=== PATIENT | female | born 1985 | race American Indian/Alaskan Native ===

== ENCOUNTER 2016-06-21 17:35 | Outpatient (CLI) | payer BC ==
[2016-06-21] MEDS ORDERED: LACTATED RINGERS 500 ML IV ONE (18:40)
[2016-06-21 19:56] LABS: Bilirubin,Urine NEG (Negative); Blood,Urine NEG (Negative); Ketones,Urine 20 mg/dL (Negative); Leukocyte Esterase,Urine NEG (Negative); Mucus,Urine FEW /HPF; Nitrite,Urine NEG (Negative); Protein,Urine <15 mg/dL mg/dL (Negative); Urobilinogen,Urine < 2.0 mg/dL (<2.0)
[2016-06-21 20:32] VITALS: BP 123/79
== END 2016-06-21 20:30 | disposition home or self-care (01) ==
LOC: TRG 17:35
PROVIDERS: ATTEND Obstetrics & Gynecology
DX: O77.9 Labor and delivery complicated by fetal stress, unspecified (principal); O47.9 False labor, unspecified; Z3A.00 Weeks of gestation of pregnancy not specified
CPT/HCPCS: 59025; 81001

== ENCOUNTER 2016-06-28 05:43 | Inpatient (IN) | payer BC ==
--- NOTE | 2016-06-27 13:40 | History and Physical Report ---
History of Present Illness Date of examination: 06/28/16 Date of admission: 06/28/16 Chief complaint: scheduled section and tubal ligation History of present illness: Pt is a 30 year old -[place] female BONI 07/02/16 at 39w3d who presents for scheduled section and bilateral tubal ligation. She reports good movement and irregular contractions. She denies vaginal bleeding and leakage of fluid. She has had care at [facility] since transfer into care at 31 wks complicated by obesity, anemia, previous section x 1. She is GBS Negative. Past History Past Medical History: no pertinent history Past Surgical History: breast surgery (breast augmentation ), section Family/Genetic History: hypertension, cancer Social history: no significant social history, single - Obstetrical History Expected Date of Delivery: 07/02/16 Actual Gestation: 39 Week(s) 2 Day(s) : 5 Para: 2 Hx # Term Pregnancies: 2 Number of Pregnancies: 0 Spontaneous Abortions: 1 Induced : 1 Number of Living Children: 2 Medications and Allergies Allergies Allergy/AdvReac Type Severity Reaction Status Date / Time No Known Allergies Allergy Unverified 06/21/16 18:07 Review of Systems All systems: negative - Physical Exam Breasts: Positive: deferred Cardiovascular: Regular rate Lungs: Positive: Clear to auscultation Abdomen: Positive: soft (obese, gravid ) Uterus: Positive: enlarged (gravid) Extremities: Positive: normal - Obstetrical FHR: auscultation normal Uterine Contraction Monitor Mode: External Uterine Contraction Pattern: Absent Uterine Tone Measurement Phase: Resting Results All other labs normal. Assessment and Plan A: IUP at 39w3d Previous section x 1 Obesity Undesired fertility P: Proceed with repeat section with bilateral tubal ligation and other indicated procedures.
[~2016-06-28 05:43] MED LIST: ANCEF/STERILE WATER 2 GM/20 ML 20 ML IV NR; BICITRA PO SCH; PEPCID IV SCH; PITOCin/NS 20 UNIT/1000ML DRIP 1,000 ML IV NR; REGLAN IV SCH
[2016-06-28 06:21] LABS: Basophils % (Auto) 0.3 % (0.0-1.8); Eosinophils % (Auto) 0.4 % (0.0-4.3); Hematocrit 34.3 % (30.3-42.9); Hemoglobin 11.4 gm/dl (10.1-14.3); Mean Corpuscular HGB Conc 33 % (30-34); Mean Corpuscular Hemoglobin 29 pg (28-32); Mean Corpuscular Volume 88 fl (79-97); Platelet Count 301 K/mm3 (140-440); Red Blood Count 3.89 M/mm3 (3.65-5.03); Red Cell Distribution Width 13.9 % (13.2-15.2); White Blood Count 12.6 K/mm3 (4.5-11.0)
--- NOTE | 2016-06-28 07:18 | Anesthesia Consultation ---
Anesthesia Consult and Med Hx Date of service: 06/28/16 - Airway Anesthetic Teeth Evaluation: Good ROM Head & Neck: Adequate Mental/Hyoid Distance: Adequate Mallampati Class: Class II Intubation Access Assessment: Probably Good - Pre-Operative Health Status ASA Pre-Surgery Classification: ASA2 Proposed Anesthetic Plan: Epidural, Spinal - Pulmonary Hx Asthma: No COPD: No Hx Pneumonia: No - Cardiovascular System Hx Hypertension: No - Central Nervous System Hx Seizures: No Hx Psychiatric Problems: No - Endocrine Hx Renal Disease: No Hx End Stage Renal Disease: No Hx Hypothyroidism: No Hx Hyperthyroidism: No - Hematic Hx Anemia: No Hx Sickle Cell Disease: No - Other Systems Hx Alcohol Use: No Hx Obesity: Yes (BMI 39.9)
--- NOTE | 2016-06-28 07:19 | Anesthesia Day of Surgery ---
Anesthesia Day of Surgery - Day of Surgery Patient Examined: Yes Patient H&P Reviewed: Yes Patient is NPO: Yes
[2016-06-28] MEDS ORDERED: BENADRYL IV PRN (07:30)
[2016-06-28] MEDS ORDERED: TORADOL IV PRN (07:30)
[2016-06-28] MEDS ORDERED: ZOFRAN IV PRN (07:30)
[2016-06-28] MEDS ORDERED: DILAUDID IV PRN (07:30)
[2016-06-28] MEDS ORDERED: NARCAN 0.4 MG/1 ML IV PRN ×2 (07:30→13:45)
[2016-06-28] MEDS: LACTATED RINGERS 1,000 ML IV NR ×2 (07:32→07:33)
[2016-06-28] MEDS ORDERED: SODIUM CHLORIDE FLUSH SYRINGE 10 ML IV PRN (08:00)
--- NOTE | 2016-06-28 08:28 | Procedure Note ---
OB Delivery Note - Delivery Date of Delivery: 06/28/16 Surgeon: GILBERTO RODRIGUEZ Estimated blood loss: 1000cc - Section Preop diagnosis: repeat , desires sterilization Postop diagnosis: same section procedure: section, repeat low transverse, bilateral tubal ligation Disposition: PACU Complications: none Narrative: Please see operative note. - A at 1 minute: 8 at 5 minutes: 9 Gender: Female (3991g (8 lb 13 oz))
--- NOTE | 2016-06-28 08:29 | Operative Report ---
Operative Report Operative Report: Date of procedure: June 28, 2016 Preoperative diagnosis: 1) IUP at 39w3d 2) Previous section 3) Undesired Fertility Postoperative diagnosis: Same Procedure: Repeat low transverse section 2) Bilateral tubal ligation via [place] Method Surgeon: Alba Tran M.D. Anesthesia:Spinal-Epidural Findings: 1) Viable female , Apgars 8 and 9, weight 3991g, (8 lb 13 oz) 2) Normal-appearing uterus ovaries and tubes Estimated blood loss: 1000 mL IV fluids: 1600 mL Urine output: 200, clear but concentrated yellow in color after the procedure Drains: Zaman to gravity Specimens: Bilateral tubal segments to pathology Complications: None. Counts correct x 3 Disposition: Stable to PACU Indication for procedure: Pt is a 30 year old -[place] female at 39w3d with a h/o previous x 1 and undesired fertility who presents for scheduled section and bilateral tubal ligation. Operation in detail: After the risks, benefits, alternatives and complications were explained to the patient she gave informed consent for the procedure. She was subsequently taken to the operating room where spinal-epidural anesthesia was noted to be adequate. She was subsequently placed in the dorsal supine position with leftward tilt and prepped and draped in a normal sterile fashion. heart tones were noted to be in the 140s prior to incision. A timeout was performed. A Pfannenstiel skin incision was made with the knife and carried down to the layer of the fascia with the Bovie. The fascia was incised in the midline and the fascial incision was extended bilaterally with the Bovie. Attention was then turned to the superior aspect of the incision which was grasped with two Kochers, tented up, and dissected off the rectus muscles. Attention was then turned to the inferior aspect of the incision which was grasped with two Kochers , tented up and dissected off the rectus muscles. The rectus muscles were then in the midline and partially transected for adequate visualization. The peritoneum was then entered bluntly. The peritoneal incision was extended with good visualization of the bladder. The peritoneal incision was then stretched. An Pola self-retaining retractor was placed for visualization. The bladder blade was placed. The vesicouterine peritoneum was grasped with smooth pickups and incised with Metzenbaum scissors. Metzenbaum scissors were used to extend the incision bilaterally. The bladder flap was then created digitally and the bladder blade was replaced. A transverse incision was made in the lower uterine segment with a knife and extended bilaterally with the bandage scissors. The head was delivered without difficulty followed by shoulders and body. was bulb suctioned at delivery. The cord was clamped and cut and the was handed to NICU staff in attendance. Cord blood was collected. The placenta was then delivered manually. The uterus was then exteriorized and cleared of all clots and debris. The hysterotomy was then reapproximated with 0 Vicryl in a running locked fashion. A second layer of the same suture was used in imbricating fashion. Attention was then turned to the tubal ligation. The right tube was identified and followed to to the fimbriae. The tube was then grasped with a [place] and ligated via the [place] method. Attention was then turned to the left tube which in a similar fashion was followed down to the fimbriae, grasped with a [place], and ligated in via the [place] method. The mesosalpinx on the left side was noted to be oozing between the remaining tubal segments so it was reapproximated with 3-0 Vicryl in a running locked fashion. Hemostasis was noted. The intervening mesosalpinx bilaterally was covered with Surgicel. The hysterotomy was inspected and hemostasis was noted. The uterus was then returned to the peritoneal cavity. All instruments were removed from the abdominal cavity. The gutters were irrigated and cleared of all clots and debris. The hysterotomy was again inspected and noted to be hemostatic. Surgicel was placed over the hysterotomy. The rectus muscles were then reapproximated with 2-0 Vicryl in an interrupted fashion. The cut edges of the rectus muscles were covered with Surgicel. The fascia was reapproximated with 0 Vicryl in a running fashion. The skin was reapproximated with 4-0 Vicryl in a subcuticular fashion. The incision was then covered with steri strips and a pressure dressing. The procedure was then ended. The patient tolerated the procedure well and was taken to the PACU in stable condition. All instrument, lap, and needle counts were correct 3.
[2016-06-28] MEDS ORDERED: MORPHINE ONE (09:46)
[2016-06-28] MEDS ORDERED: ANCEF/STERILE WATER 2 GM/20 ML IV ONE (10:05)
[2016-06-28] MEDS ORDERED: WATER FOR IRRIG STERILE IR ONE (10:15)
[2016-06-28] MEDS ORDERED: NACL 0.9% IR ONE (10:15)
[2016-06-28] MEDS ORDERED: NACL 0.9% 1000 ML 1,000 ML ONE (11:23)
[2016-06-28] MEDS ORDERED: LANSINOH TP PRN (13:45)
[2016-06-28] MEDS ORDERED: PITOCin/NS 20 UNIT/1000ML DRIP 1,000 ML IV SCH (13:45)
[2016-06-28] MEDS ORDERED: MYLICON PO PRN (13:45)
[2016-06-28] MEDS ORDERED: MORPHINE IV PRN ×2 (13:45)
[2016-06-28] MEDS ORDERED: SODIUM CHLORIDE FLUSH SYRINGE 10 ML IV NR (13:45)
[2016-06-28] MEDS ORDERED: MOTRIN PO PRN (13:45)
[2016-06-28] MEDS ORDERED: TUCKS PAD TP PRN (13:45)
[2016-06-28] MEDS: D5LR 1,000 ML IV SCH (17:56)
[2016-06-28] MEDS: PERCOCET 5/325 PO PRN (17:56)
[2016-06-28] MEDS: ANCEF/NS 1 GM/50 ML 50 ML IV SCH (17:56)
[2016-06-28] MEDS: MILK OF MAGNESIA PO SCH (22:00)
[2016-06-28] MEDS: FEOSOL PO SCH (22:00)
[2016-06-29 01:29] LABS: Hematocrit 28.1 % (30.3-42.9); Hemoglobin 9.3 gm/dl (10.1-14.3)
[2016-06-29] MEDS: ANCEF/NS 1 GM/50 ML 50 ML IV SCH (01:45)
[2016-06-29] MEDS: D5LR 1,000 ML IV SCH (01:45)
[2016-06-29] MEDS: MILK OF MAGNESIA PO SCH ×5 (02:00→23:55)
[2016-06-29] MEDS ORDERED: M-M-R II VACCINE SUB-Q ONE (06:00)
[2016-06-29] MEDS ORDERED: BOOSTRIX IM ONE (06:00)
--- NOTE | 2016-06-29 08:23 | Progress Note ---
Assessment and Plan O: VSS AF PP H/H: 9.3/28.1 A: Stable POD #1 Permanent Sterilization Anemia P: Iron BID Subjective - Subjective Date of service: 06/29/16 Patient reports: appetite normal, voiding normally, pain well controlled, ambulating normally, no flatus [place]: doing well Objective - Vital Signs Latest vital signs: Vital Signs Temp Pulse Pulse Pulse Resp BP BP 06/29/16 04:10 98.6 F 73 20 128/63 06/29/16 00:00 98.4 F 88 20 116/73 06/28/16 20:15 98.9 F 93 H 20 100/51 06/28/16 16:21 98.0 F 76 20 130/74 06/28/16 13:38 98.3 F 88 20 140/74 06/28/16 12:45 78 16 143/83 06/28/16 12:30 77 12 128/74 06/28/16 12:15 82 12 100/50 06/28/16 12:00 75 13 142/76 06/28/16 11:55 80 15 130/73 06/28/16 11:50 80 15 130/73 06/28/16 11:45 98.8 F 92 H 16 106/73 06/28/16 10:55 80 15 130/73 06/28/16 10:50 92 H 16 106/73 06/28/16 09:38 89 06/28/16 09:33 86 06/28/16 09:28 91 H 06/28/16 09:23 85 06/28/16 09:18 88 06/28/16 09:12 89 06/28/16 09:07 110 H 06/28/16 09:03 85 06/28/16 08:58 90 06/28/16 08:53 88 06/28/16 08:48 84 06/28/16 08:43 89 06/28/16 08:37 89 06/28/16 08:32 91 H 06/28/16 08:27 85 Pulse Ox 06/29/16 04:10 06/29/16 00:00 06/28/16 20:15 06/28/16 16:21 06/28/16 13:38 06/28/16 12:45 06/28/16 12:30 06/28/16 12:15 06/28/16 12:00 06/28/16 11:55 06/28/16 11:50 06/28/16 11:45 06/28/16 10:55 06/28/16 10:50 06/28/16 09:38 97 06/28/16 09:33 97 06/28/16 09:28 96 06/28/16 09:23 96 06/28/16 09:18 96 06/28/16 09:12 96 06/28/16 09:07 96 06/28/16 09:03 96 06/28/16 08:58 96 06/28/16 08:53 97 06/28/16 08:48 98 06/28/16 08:43 96 06/28/16 08:37 97 06/28/16 08:32 98 06/28/16 08:27 97 Intake and Output 06/28/16 06/29/16 06/29/16 22:59 06:59 14:59 Intake Total 1681.25 1280 Output Total 1800 600 Balance -118.75 680 Intake: IV 1321.25 800 PITOCin/NS 20 UNIT/1000ML 687.5 DRIP 1,000 ML @ 125 mls/ hr IV TITR NR Rx#: [id number] Ancef/Ns 1 gm/50 ml 50 ml 40 50 @ 100 mls/hr IV Q8H RICHI Rx#:[id number] D5lr 1,000 ml @ 125 mls/ 593.75 750 hr IV DIRECT RICHI Rx#: [id number] Oral 360 360 Intake, Free Water 120 Output: Urine 1800 600 Indwelling Catheter 1800 600 Other: Total, Intake Amount 240 120 Total, Output Amount 1000 600 Voiding Method Indwelling Catheter # Voids Void 1 - Exam Breasts: Present: deferred Lungs: Present: Normal air movement Abdomen: Present: normal appearance, soft, normal bowel sounds. Absent: distention Vulva: both: normal Uterus: Present: normal, firm, fundal height below umbilicus. Absent: bogginess Extremities: Present: normal Incision: Present: normal, dry, intact, dressed - Labs Labs: Abnormal lab results 06/29/16 Range/Units 00:58 Hgb 9.3 L (10.1-14.3) gm/dl Hct 28.1 L D (30.3-42.9) %
[2016-06-29] MEDS: PERCOCET 5/325 PO PRN ×2 (10:40→22:28)
--- NOTE | 2016-06-29 15:28 | Progress Note ---
Subjective Date of service: 06/29/16 Interval history: 1st POD after Patient is in the bed, comfortable. Pain is well controlled with pain meds. Ambulated well. No residual neurological deficit. No anesthesia complications Objective - Constitutional Vitals: Vital Signs - 12hr 06/29/16 06/29/16 06/29/16 04:10 08:11 10:40 Temperature 98.6 F 98.5 F Pulse Rate [ 73 74 Right Radial] Respiratory 20 20 20 Rate Blood Pressure 128/63 [Left Arm] Blood Pressure 102/60 [Right Arm] - Labs CBC & Chem 7: 06/29/16 00:58 Labs: Abnormal lab results 06/29/16 Range/Units 00:58 Hgb 9.3 L (10.1-14.3) gm/dl Hct 28.1 L D (30.3-42.9) %
--- NOTE | 2016-06-29 16:35 | Query-Anemia ---
Dear Dr. Alba Tran Date: June 29, 2016 Information Technology Security Manager/CDS: Juvenal Lion Phone#: Exercise your independent professional judgment when responding to this query. Questions asked do not imply a particular answer is desired or expected. We greatly appreciate your clarification on this issue. Clinical Documentation States: 30 y/o AAF @ 39w3d presents for scheduled section and bilateral tubal ligation. H&P by Dr. Tran on 06/28 states : "She has had care at [facility] since transfer into care at 31 wks complicated by obesity, anemia, previous section x 1" PN by Sarika Haley CNM on 06/29 states : "Anemia" Operative Report by Dr. Tran on 06/28 states : "Estimated blood loss: 1000 mL" Clinical Findings Show: 06/28 06/29 Hgb 11.4 9.3 L Hct 34.3 28.1 L Treatment: Ferrous Sulfate (Feosol) 325mg PO BID RICHI Etiology: [X] Anemia due to acute blood loss [ ] Anemia due to chronic blood loss [ ] Anemia secondary to ESRD [ ] Anemia secondary to neoplastic disease [ ] Iron deficiency anemia due to malabsorption [ ] GI Bleed from: [ ] Anemia of chronic disease ,Other: [ ] Precipitous Drop in Hemoglobin [ ] Precipitous Drop in Hematocrit [ ] Other: [ ] Unable to determine [ ] Comment/Explanation: Present on Admission: [ ] Yes (Y) [ ] Clinically undeterminable (W) [ X ] No (N) Please also document response in your Progress Notes and/or Discharge Summary and indicate if the condition was present on admission. MTDD
[2016-06-29] MEDS: PRENATAL VITAMIN PO SCH (18:36)
[2016-06-29] MEDS: FEOSOL PO SCH ×2 (18:36→22:25)
[2016-06-30] MEDS: MILK OF MAGNESIA PO SCH (05:29)
--- NOTE | 2016-06-30 09:07 | Progress Note ---
Assessment and Plan A: POD#2 s/p repeat section with bilateral tubal ligation; Asymptomatic anemia, Delayed return of bowel function P: Aggressive bowel regimen. Monitor clinical status. Subjective - Subjective Date of service: 06/30/16 Principal diagnosis: s/p repeat with BTL Interval history: Pt tolerating diet but no flatus or bowel movement. Patient reports: appetite normal, voiding normally, pain well controlled, ambulating normally, no flatus, no bowel movement, no nauseated [place]: doing well, bottle feeding Objective - Vital Signs Latest vital signs: Vital Signs Temp Pulse Resp BP 06/30/16 01:00 98.2 F 85 20 119/72 06/29/16 22:28 20 06/29/16 16:00 98.3 F 80 20 118/72 06/29/16 10:40 20 Intake and Output 06/29/16 06/30/16 06/30/16 22:59 06:59 14:59 Intake Total 600 720 Output Total 1 Balance 600 719 Intake: Oral 600 480 Intake, Free Water 240 Output: Urine 1 Void 1 Other: Total, Intake Amount 120 240 Total, Output Amount 1 Voiding Method Toilet # Voids Void 1 1 - Exam Breasts: Present: deferred Cardiovascular: Present: Regular rate Lungs: Present: Clear to auscultation Abdomen: Present: soft (obese) Uterus: Present: fundal height below umbilicus Extremities: Present: normal Incision: Present: intact
[2016-06-30] MEDS ORDERED: CITRATE OF MAGNESIA PO ONE (10:00)
[2016-06-30] MEDS: PERCOCET 5/325 PO PRN (16:12)
[2016-06-30] MEDS: FEOSOL PO SCH (21:47)
[2016-07-01] MEDS: MILK OF MAGNESIA PO SCH (09:34)
[2016-07-01] MEDS: FEOSOL PO SCH (09:34)
[2016-07-01] MEDS: PRENATAL VITAMIN PO SCH (09:34)
--- NOTE | 2016-07-01 10:51 | Progress Note ---
Assessment and Plan A: POD#3 s/p repeat section with bilateral tubal ligation; Asymptomatic anemia P: Discharge pt today with follow up in two weeks for incision check. Subjective - Subjective Date of service: 07/01/16 Principal diagnosis: s/p repeat with BTL Interval history: Pt has passed flatus and had a bowel movement. She desires to go home. Patient reports: appetite normal, voiding normally, pain well controlled, flatus , bowel movement, ambulating normally, no dizzy ambulation : doing well Objective - Vital Signs Latest vital signs: Vital Signs Temp Pulse Resp BP 07/01/16 08:13 98.2 F 68 18 112/66 06/30/16 23:22 98.2 F 86 20 121/70 06/30/16 17:59 98.2 F 114 H 18 137/75 06/30/16 16:12 20 Intake and Output 06/30/16 07/01/16 07/01/16 22:59 06:59 14:59 Intake Total 840 360 360 Balance 840 360 360 Intake: Oral 600 120 Intake, Free Water 240 360 240 Other: Total, Intake Amount 240 120 Voiding Method Toilet # Voids Void 1 2 1 # Bowel Movements 1 - Exam Breasts: Present: deferred Cardiovascular: Present: Regular rate Lungs: Present: Clear to auscultation Abdomen: Present: soft, distention (mild ), normal bowel sounds Extremities: Present: normal Incision: Present: intact
--- NOTE | 2016-07-01 10:54 | Discharge Summary ---
Providers - Providers Date of Admission: 06/28/16 05:43 Date of discharge: 07/01/16 Attending physician: GILBERTO RODRIGUEZ 06/28/16 13:45 Consult to Java Designer [CONS] Routine Reason For Exam: Primary care physician: GILBERTO RODRIGUEZ Hospitalization Reason for admission: section Delivery: Procedure: section, bilateral tubal ligation, repeat low transverse Procedure details: Please see operative note. Incision: intact Discharge diagnosis: IUP at term delivered baby: female Hospital course: Patient underwent repeat section with bilateral tubal ligation which she tolerated well. Her course was uncomplicated and she met discharge criteria on postoperative day #3. Condition at discharge: Stable Disposition: DISCHARGED TO HOME OR SELFCARE - Discharge Diagnoses (1) Term of female Status: Acute (2) Obesity (BMI 35.0-39.9 without comorbidity) Status: Acute (3) S/P section Status: Acute (4) Acute blood loss anemia Status: Acute Plan - Discharge Medications Prescriptions: Docusate Sodium [Colace] 100 mg PO BID PRN #60 capsule PRN Reason: Constipation Ferrous Sulfate [Feosol 325 MG tab] 325 mg PO BID #60 tablet Ibuprofen [Motrin 800 MG tab] 800 mg PO Q8HR PRN #30 tablet PRN Reason: Pain oxyCODONE /ACETAMINOPHEN [Percocet 5/325] 1 tab PO Q6HR PRN #40 tablet PRN Reason: Pain - Provider Discharge Summary Activity: no sex for 6 weeks, no heavy lifting 4 weeks, no strenuous exercise Diet: routine Instructions: routine Additional instructions: [] Smoking cessation referral if applicable(refer to patient education folder for contact #) [] Refer to [facility] Booklet Call your doctor immediately for: * Fever > 100.5 * Heavy vaginal bleeding ( >1 pad per hour) * Severe persistent headache * Shortness of breath * Reddened, hot, painful area to leg or breast * Drainage or odor from incision. * Keep incision clean and dry at all times and follow doctor's instructions regarding bathing/showering - Follow up plan Follow up: GILBERTO RODRIGUEZ MD [Primary Care Provider] - 07/12/16 (incision check )
[2016-07-01 14:11] VITALS: BP 118/60
== END 2016-07-01 13:05 | disposition home or self-care (01) | DRG 765 ==
LOC: APU 05:43 → OB 13:08
PROVIDERS: ADMIT Obstetrics & Gynecology; ATTEND Obstetrics & Gynecology
PROC: 0UB70ZZ Excision of Bilateral Fallopian Tubes, Open Approach (ICD-10-PCS; principal; 2016-06-28)
PROC: 10D00Z1 Extraction of Products of Conception, Low, Open Approach (ICD-10-PCS; principal; 2016-06-28)
DX: O34.211 Maternal care for low transverse scar from previous cesarean delivery (principal); D62 Acute posthemorrhagic anemia; O99.213 Obesity complicating pregnancy, third trimester; Z37.0 Single live birth; Z3A.39 39 weeks gestation of pregnancy; Z68.39 Body mass index [BMI] 39.0-39.9, adult; Z30.2 Encounter for sterilization; O99.02 Anemia complicating childbirth
CPT/HCPCS: 36415; 85014; 85018; 85025; 86850; 86900; 86901; 88302; 90471; 90715; 99211; A6250; G0463; J0690; J1200; J2270; J2405; J2590; J2765; J7030; J7120; J7121